=== PATIENT | female | born 1955 | race Caucasian/White ===

== ENCOUNTER 2020-05-04 12:59 | Outpatient (CLI) | payer OTHER ==
--- NOTE | 2020-05-01 09:54 | NUR ---
LMOM FOR PT TO CALL BACK TO ANSWER QUESTIONS
[~2020-05-04] VITALS: Ht 162.6 cm; Wt 94.5 kg
[2020-05-04] VITALS (7 sets, daily range): BP systolic 130–192; BP diastolic 72–94; PULSE 63–78
[~2020-05-04 12:59] MED LIST: AMBIEN 5MG TABLE5 MG PO; ATIVAN; BCP PO; BENICAR/HCTZ; CETIRIZINE; IMITREX100 MG PO; PRINIVIL10 MG PO; VOLTAREN 50MG T50 MG PO; ZOFRAN 4MG T4 MG/TAB PO; ZOLPIDEM TART10 MG PO
[2020-05-04 14:32] LABS: CSF APPEARANCE CLEAR; CSF COLOR COLORLESS; CSF RBC 3 /mm3 (0-0)
[2020-05-04 14:43] LABS: GLUCOSE,CSF 50 mg/dL (40-70); TOTAL PROTEIN,CSF 35 mg/dL (15-45)
[2020-05-04 15:00] LABS: CSF MONONUCLEAR 100 % (70-100); CSF POLYMORPHONUCLEAR 0 % (0-6)
--- NOTE | 2020-05-04 16:00 | NUR ---
Discharge instructions given to pt.Pt verbalizes understanding.INT removed,catheter tip intact.
== END 2020-05-04 16:44 | disposition home or self-care (01) ==
LOC: COL.RAD 12:59
PROVIDERS: Psychiatry & Neurology Neurology
DX: G43.709 Chronic migraine without aura, not intractable, without status migrainosus (principal)